=== PATIENT | female | born 1970 | race Caucasian/White ===

== ENCOUNTER → 2018-07-15 13:01 | Outpatient (CLI) | payer MEDICARE, MEDICAID, SELFPAY ==
--- NOTE | 2018-07-15 | DI.US.S_ITS ---
PROCEDURE: US ABDOMEN COMPLETE INDICATIONS: ELEVATED LYP TECHNIQUE: Real-time scanning was performed of the abdominal and retroperitoneal organs, with image documentation. COMPARISON: [facility], US, ABDOMEN COMPLETE, 12/03/2014, 14:17. [facility], CT, ABDOMEN/PELVIS WITH CONTRAST, 02/19/2007, 14:35. FINDINGS: Liver: The liver is normal in size and demonstrates extensive heterogeneous echogenicity which may be slightly increased when compared to the right kidney. No definite liver lesions are identified. Gallbladder: The gallbladder is normal in size. There is no gallbladder wall thickening, pericholecystic fluid, or cholelithiasis. Biliary ducts: Intrahepatic bile ducts are non-dilated. Extrahepatic bile duct caliber measures 6 mm. Normal is 6-7 mm or less in diameter, or 10 mm or less post-cholecystectomy. Pancreas: Visualized portions of the pancreas are sonographically normal. Spleen: Spleen is normal in size and homogeneous in echotexture. Kidneys: Kidneys are normal in size and echotexture. Right kidney measures 9.1 cm long; left kidney measures 10.1 cm long. No hydronephrosis or nephrolithiasis. No solid masses. Aorta: Visualized aorta is normal in caliber at less than 3 cm. Iliacs: Proximal common iliac arteries are normal in caliber at less than 2.5 cm. IVC: Intrahepatic inferior vena cava is patent. Miscellaneous: No free abdominal fluid. IMPRESSION: 1. No cholelithiasis or evidence of acute cholecystitis. 2. Nonspecific coarse echogenicity of the liver could potentially be within normal limits for this patient, but may be seen in the setting of hepatic steatosis or other chronic liver diseases. Please correlate clinically. Dictated by: Martin Hernández M.D. on 07/15/2018 at 13:56 Approved by: Martin Hernández M.D. on 07/15/2018 at 13:58
[2018-07-15 13:27] LABS: Add Manual Diff / Slide Review NO; Basophils Percent Auto 0.5 % (0-2); Eosinophils Percent Auto 0.7 % (2-4); Hematocrit 44.4 % (36-46); Hemoglobin 15.4 g/dL (12.0-16.0); Lymphocytes Percent Auto 30.5 % (25-40); Mean Corpuscular HGB Conc 34.8 % (30-36); Mean Corpuscular Hemoglobin 29.6 PG (26-34); Mean Corpuscular Volume 85.1 fL (80-100); Neutrophils Absolute Auto 4800 /uL (3000-5900); Neutrophils Percent Auto 62.3 % (50-75); Platelet Count 239 X10^3/uL (150-400); Red Blood Cell Count 5.22 X10^6/uL (4.0-5.2); Red Cell Distribution Width 13.7 % (11.6-14.8); White Blood Cell Count 7.7 X10^3/uL (4.5-11.0)
[2018-07-15 13:46] LABS: Amylase 127 U/L (30-110); Lipase 31 U/L (23-300)
== END ==
PROVIDERS: PCP Family Medicine; Visit Provider Family Medicine
DX: R10.9 Unspecified abdominal pain (principal); R74.8 Abnormal levels of other serum enzymes; R11.2 Nausea with vomiting, unspecified
CPT/HCPCS: 36415; 76700; 82150; 83690; 85025

== ENCOUNTER 2018-07-29 13:42 | Emergency (ER) | payer MEDICARE, MEDICAID, SELFPAY ==
[2018-07-29 13:48] VITALS: BP 127/87; PULSE 103; RESP 20; TEMP 36.9; O2SAT 96
--- NOTE | 2018-07-29 15:23 | ED.ABDPAIN ---
HPI - Abdominal Pain <Diandra Salcedo PA-C - Last Filed: 07/29/18 22:28> General Chief Complaint: Abdominal Pain Stated Complaint: Lower abdominal pain Time Seen by Provider: 07/29/18 15:23 Source: patient Mode of arrival: ambulatory Limitations: no limitations History of Present Illness HPI narrative: This 48-year-old female comes in due to persistent abdominal pain for more than a month. She states that about 6 weeks ago she was treated for UTI with multiple antibiotics and after that developed a ?blockage? where she has had persistent abdominal pain, nausea and vomiting. She states she was admitted to another local hospital for this about a month ago. She has had 2 CT scans done and apparently gallbladder evaluation, and states that there were no specific findings. She is awaiting a colonoscopy, apparently referral has been done by her PCP. She states that she was not able to tolerate anything solid when she left the hospital and still cannot. She even has difficulty with keeping down any liquids. She states that she feels like there is a firm prominence in her right lower abdomen. She states that she has intermittent sharp pain there without exacerbating or alleviating features aside from pain with pressure on the area. She states that she has no urinary symptoms currently. She denies blood in the stools or diarrhea. She states that she has sweats and chills at home with temperatures to 100. She has COPD, denies any new chest pain, dyspnea, increased cough or other new complaints aside from above. She has not noted any swollen glands. She is not acutely worse today but states her PCP advised coming in. I spoke with PCP Arthur who advised that patient has had persistent sx but initially was complaining of pain in the left lower quadrant, today on exam on the right side. She states that patient has normal CT scan 07/10 and also had a negative HIDA scan and lab work done today. She has also done testing for hepatitis. She has a colonoscopy appointment pending with Dr. rajan and has also been referred to GI. On review of previous hospital records she was admitted 07/10 to another local hospital due to abdominal pain, nausea, and vomiting and failing an oral challenge in the ED. HIDA scan and CT were normal. There were no acute findings on her lab work including amylase, lipase, LFTs, hep C serology. Related Data Home Medications Medication Instructions Recorded Confirmed albuterol sulfate [Ventolin HFA] 2 puff INH QID 07/29/18 07/29/18 beclomethasone dipropionate [Qvar 1 puff INHALATION BID 07/29/18 07/29/18 RediHaler] clonazepam 1 mg PO BID 07/29/18 07/29/18 coffee extract [Green Coffee Hagen] 1 cap PO DAILY 07/29/18 07/29/18 famotidine 20 mg PO DAILY 07/29/18 07/29/18 methocarbamol 1 tab PO TID PRN 07/29/18 07/29/18 nicotine 1 patch TOPICAL DAILY 07/29/18 07/29/18 polyethylene glycol 3350 1 dose PO PRN PRN 07/29/18 07/29/18 [LaxaClear] prochlorperazine maleate 5 mg PO Q6H 07/29/18 07/29/18 sennosides [senna] 1 tab PO PRN PRN 07/29/18 07/29/18 sumatriptan succinate 1 tab PO PRN PRN 07/29/18 07/29/18 Previous Rx's Medication Instructions Recorded quetiapine [Seroquel] 50 mg PO QHS #30 tab 04/06/17 meloxicam [Mobic] 7.5 mg PO BIDCC PRN #60 tab 07/20/17 hydrocodone-acetaminophen [Lillington] 1 tab PO Q6H PRN #7 tab 07/29/18 metoclopramide HCl [Reglan] 5 mg PO TID PRN #7 tab 07/29/18 Allergies Allergy/AdvReac Type Severity Reaction Status Date / Time fexofenadine [From NAVIN-D] Allergy Mild UNCONTROLLABLE Verified 07/29/18 16:19 BOWEL MOVEMENTS gabapentin [GABAPENTIN] Allergy Mild BODY SHAKES Verified 07/29/18 16:19 pregabalin [PREGABALIN] Allergy Mild TAKES Verified 07/29/18 16:19 MEMORY AWAY, ITCHING pseudoephedrine Allergy Mild UNCONTROLLABLE Verified 07/29/18 16:19 [From NAVIN-D] BOWEL MOVEMENTS lamotrigine Allergy Unknown Verified 07/29/18 16:19 prochlorperazine AdvReac Unknown Anxiety Verified 07/29/18 16:19 PEPPER,LOPEZ Allergy Unknown Uncoded 02/27/18 12:01 Review of Systems <Diandra Wesfader, PA-C - Last Filed: 07/29/18 22:28> Review of Systems All systems reviewed & are unremarkable except as noted in HPI and below PFSH <Diandra Salcedo PA-C - Last Filed: 07/29/18 22:28> Comment: Previous alcohol abuse, now abstinent. Denies other substance abuse or use Exam <Diandra Salcedo PA-C - Last Filed: 07/29/18 22:28> Narrative Exam Narrative: GENERAL APPEARANCE: Patient sitting comfortably, in no distress. HEENT: PERRL, EOMI, no scleral icterus NECK: Supple LUNGS: Generalized course BS with expiratory wheezes, no cough on exam HEART: Rate and rhythm regular, normal S1 and S2, no S3 or S4. ABDOMEN: Soft, nondistended, bowel sounds present x 4 quadrants, no masses palpable, no hepatosplenomegaly. Localized tenderness just medial to McBurney's point without guarding or rebound. No CVAT EXTREMITIES: No edema, no cyanosis DERMATOLOGIC: No jaundice or exanthem NEUROLOGIC: Alert and oriented with normal speech and coordination Initial Vital Signs Initial Vital Signs: Vital Signs Temperature 98.5 F 07/29/18 13:48 Pulse Rate 103 H 07/29/18 13:48 Respiratory Rate 20 07/29/18 13:48 Blood Pressure 127/87 07/29/18 13:48 Pulse Oximetry 96 07/29/18 13:48 <Tadeo Corley DO - Last Filed: 07/30/18 18:31> Initial Vital Signs Initial Vital Signs: Vital Signs Temperature 98.5 F 07/29/18 13:48 Pulse Rate 103 H 07/29/18 13:48 Respiratory Rate 20 07/29/18 13:48 Blood Pressure 127/87 07/29/18 13:48 Pulse Oximetry 96 07/29/18 13:48 Course <СВЕТЛАНА Still Last Filed: 07/29/18 22:28> Course Narrative: Patient tried to eat and drink and initially was unable to tolerate. We reviewed medications and she remembered Reglan specifically working for her previous the. She had also had a dose or 2 of Lillington at some point which was effective. After 1 Lillington and a dose of Reglan, she was feeling much better and was able to tolerate water and apple sauce with improvement in pain and no vomiting. She states that she has been able to take her oral medications. She was given a prescription for Reglan and also a few Lillington until she can get back to her PCP to determine regimen for pain control and nausea until her colonoscopy and GI appointments. I did advise her to talk with [facility] tomorrow regarding her appointment. She did not wish or appear to need hospital admission tonight as there were no acute findings on her lab work or CT and she was ultimately able to tolerate p.o. fluids and food Orders Ordered: Discontinued Medications Hydrocodone Bitart/Acetaminophen ([place] 5/325) 1 tab PO NOW ONE Stop: 07/29/18 18:51 Last Admin: 07/29/18 19:01 Dose: 1 tab Diphenhydramine HCl (Benadryl) 50 mg IV NOW ONE Stop: 07/29/18 17:23 Last Admin: 07/29/18 17:45 Dose: 50 mg Sodium Chloride (Normal Saline 0.9%) 1,000 mls @ 1,000 mls/hr IV BOLUS ONE Stop: 07/29/18 16:41 Last Infusion: 07/29/18 17:57 Dose: 0 mls/hr Admin: 07/29/18 16:18 Dose: 1,000 mls/hr Ketorolac Tromethamine (Toradol) 30 mg IV NOW ONE Stop: 07/29/18 18:20 Last Admin: 07/29/18 18:26 Dose: 30 mg Metoclopramide HCl (Reglan) 10 mg IV NOW ONE Stop: 07/29/18 18:51 Last Admin: 07/29/18 19:01 Dose: 10 mg Ondansetron HCl (Zofran) 4 mg IV NOW ONE Stop: 07/29/18 15:43 Last Admin: 07/29/18 16:18 Dose: 4 mg Vital Signs - 8 hr 07/29/18 18:41 07/29/18 19:58 Pulse Rate 72 61 Respiratory Rate 15 12 Blood Pressure 106/69 Blood Pressure [Left Arm] 110/89 Pulse Oximetry 99 99 <Tadeo Corley, DO - Last Filed: 07/30/18 18:31> Orders Ordered: Discontinued Medications Hydrocodone Bitart/Acetaminophen ([place]illing[place] 5/325) 1 tab PO NOW ONE Stop: 07/29/18 18:51 Last Admin: 07/29/18 19:01 Dose: 1 tab Diphenhydramine HCl (Benadryl) 50 mg IV NOW ONE Stop: 07/29/18 17:23 Last Admin: 07/29/18 17:45 Dose: 50 mg Sodium Chloride (Normal Saline 0.9%) 1,000 mls @ 1,000 mls/hr IV BOLUS ONE Stop: 07/29/18 16:41 Last Infusion: 07/29/18 17:57 Dose: 0 mls/hr Admin: 07/29/18 16:18 Dose: 1,000 mls/hr Ketorolac Tromethamine (Toradol) 30 mg IV NOW ONE Stop: 07/29/18 18:20 Last Admin: 07/29/18 18:26 Dose: 30 mg Metoclopramide HCl (Reglan) 10 mg IV NOW ONE Stop: 07/29/18 18:51 Last Admin: 07/29/18 19:01 Dose: 10 mg Ondansetron HCl (Zofran) 4 mg IV NOW ONE Stop: 07/29/18 15:43 Last Admin: 07/29/18 16:18 Dose: 4 mg Vital Signs - 8 hr 07/29/18 18:41 07/29/18 19:58 Pulse Rate 72 61 Respiratory Rate 15 12 Blood Pressure 106/69 Blood Pressure [Left Arm] 110/89 Pulse Oximetry 99 99 MDM - Abdominal Pain <Diandra Salcedo PA-C - Last Filed: 07/29/18 22:28> Medical Records Attestation: I reviewed the patient's medical records. Lab Data Attestation: I reviewed the patient's lab results. Result diagrams: 07/29/18 10:15 07/29/18 10:15 Lab Results 07/29/18 07/29/18 07/29/18 Range/Units 10:15 10:15 16:30 WBC 7.5 (4.5-11.0) X10^3/uL RBC 5.14 (4.0-5.2) X10^6/uL Hgb 15.2 (12.0-16.0) g/dL Hct 43.7 (36-46) % MCV 84.9 (80-100) fL MCH 29.5 (26-34) PG MCHC 34.7 (30-36) % RDW 13.7 (11.6-14.8) % Plt Count 183 (150-400) X10^3/uL Neut % (Auto) 52.8 (50-75) % Lymph % (Auto) 39.4 (25-40) % Adams % (Auto) 5.7 (3-14) % Eos % (Auto) 0.8 L (2-4) % Baso % (Auto) 1.3 (0-2) % Neut # (Auto) 4000 (2825-4344) /uL Sodium 145 (137-145) mmol/L Potassium 4.7 (3.4-5.1) mmol/L Chloride 105 (98-107) mmol/L Carbon Dioxide 30 (22-32) mmol/L BUN 11 (7-17) mg/dL Creatinine 0.80 (0.52-1.04) mg/dL Estimated GFR > 60.0 (>60) mL/min BUN/Creatinine Ratio 13.8 (6-22) Glucose 93 (70-100) mg/dL Calcium 9.9 (8.4-10.2) mg/dL Total Bilirubin 0.8 (0.2-1.3) mg/dL AST 36 (14-36) IU/L ALT 36 (9-52) IU/L Alkaline Phosphatase 88 (38-126) U/L Total Protein 7.7 (6.3-8.2) g/dL Albumin 4.7 (3.5-5.0) g/dL Globulin 3.0 (1.7-4.1) g/dL Albumin/Globulin Ratio 1.6 (1.0-2.8) Lipase 30 (23-300) U/L Urine RBC 1-5/hpf (0-5/HPF) Urine WBC 0-1/hpf (0-5/HPF) Ur Squamous Epith Cells 1-5 /hpf Urine Bacteria Few (2-10) H (None) Ur Culture Indicated? Cult not indicated Micro UA Comment Not Reportable Point of care testing: Urine Dip Bedside Urine Glucose Negative Bedside Urine Bilirubin - Negative Bedside Urine Ketone - Negative Urine Specific [place] 1.015 Bedside Urine Occult Blood +/- Bedside Urine pH 6.0 Bedside Urine Protein - Negative Bedside Urine Urobilinogen - Negative Bedside Urine Nitrite - Negative Bedside Urine Leukocytes - Negative Esterase Imaging Data CT scan - abdomen: Radiologist's impression: Abdomen/Pelvis CT (Signed) Toby Armenta - 07/29/18 Abdomen Ultrasound (Signed) Martin Hernández - 07/15/18 View Report History Print [address] [address] [place] Scan Report Signed Patient: Kiki Priest MR#: [id number] : 1970 Acct:[id number] Age/Sex: 48 / F Date of Service: 07/29/18 Loc: ED Accession Number: [id number] Procedure: CT abdomen pelvis w con Ordering Provider: Diandra Salcedo P.A-C PROCEDURE: CT ABDOMEN PELVIS W CON INDICATIONS: worsening abdominal pain mid lower to Right, chronic nausea/vomiting TECHNIQUE: After the administration of intravenous contrast, 5 mm thick sections acquired from the diaphragm to the symphysis. 5 mm coronal and sagittal reformats were acquired. For radiation dose reduction, the following was used: automated exposure control, adjustment of mA and/or kV according to patient size. COMPARISON: [facility], CT, ABDOMEN/PELVIS WITH CONTRAST, 02/19/2007, 14:35. FINDINGS: Image quality: Excellent. ABDOMEN: Lung bases: Lung bases are clear. Heart size is normal. Solid organs: Liver is normal in size and enhancement. Gallbladder is within normal limits. Biliary system is non dilated. Pancreas enhances normally. Spleen is normal in size and enhancement. No adrenal nodules. Kidneys demonstrate normal size and enhancement, without hydronephrosis. Peritoneum and bowel: Bowel loops demonstrate normal wall thickness and caliber. No free fluid or air. There is a small hiatal hernia. Appendix is not definitively identified. No secondary signs of acute appendicitis is seen in right lower quadrant abdomen Nodes and vessels: No retroperitoneal or mesenteric adenopathy by size criteria. Aorta and inferior vena cava are normal in size. Miscellaneous: No ventral hernias. PELVIS: Genitourinary: Bladder wall thickness is normal. Miscellaneous: No inguinal hernias or adenopathy. Bones: No suspicious bony lesions. No vertebral body compression fractures. IMPRESSION: 1. No acute inflammatory process within the abdomen or pelvis. No findings to explain patient's clinical symptoms. Dictated by: Toby Armenta M.D. on 07/29/2018 at 18:22 Approved by: Toby Armenta M.D. on 07/29/2018 at 18:27 <Tadeo Corley, DO - Last Filed: 07/30/18 18:31> Lab Data Lab Results 07/29/18 07/29/18 07/29/18 Range/Units 10:15 10:15 16:30 WBC 7.5 (4.5-11.0) X10^3/uL RBC 5.14 (4.0-5.2) X10^6/uL Hgb 15.2 (12.0-16.0) g/dL Hct 43.7 (36-46) % MCV 84.9 (80-100) fL MCH 29.5 (26-34) PG MCHC 34.7 (30-36) % RDW 13.7 (11.6-14.8) % Plt Count 183 (150-400) X10^3/uL Neut % (Auto) 52.8 (50-75) % Lymph % (Auto) 39.4 (25-40) % Adams % (Auto) 5.7 (3-14) % Eos % (Auto) 0.8 L (2-4) % Baso % (Auto) 1.3 (0-2) % Neut # (Auto) 4000 (7635-0934) /uL Sodium 145 (137-145) mmol/L Potassium 4.7 (3.4-5.1) mmol/L Chloride 105 (98-107) mmol/L Carbon Dioxide 30 (22-32) mmol/L BUN 11 (7-17) mg/dL Creatinine 0.80 (0.52-1.04) mg/dL Estimated GFR > 60.0 (>60) mL/min BUN/Creatinine Ratio 13.8 (6-22) Glucose 93 (70-100) mg/dL Calcium 9.9 (8.4-10.2) mg/dL Total Bilirubin 0.8 (0.2-1.3) mg/dL AST 36 (14-36) IU/L ALT 36 (9-52) IU/L Alkaline Phosphatase 88 (38-126) U/L Total Protein 7.7 (6.3-8.2) g/dL Albumin 4.7 (3.5-5.0) g/dL Globulin 3.0 (1.7-4.1) g/dL Albumin/Globulin Ratio 1.6 (1.0-2.8) Lipase 30 (23-300) U/L Urine RBC 1-5/hpf (0-5/HPF) Urine WBC 0-1/hpf (0-5/HPF) Ur Squamous Epith Cells 1-5 /hpf Urine Bacteria Few (2-10) H (None) Ur Culture Indicated? Cult not indicated Micro UA Comment Not Reportable Point of care testing: Urine Dip Bedside Urine Glucose Negative Bedside Urine Bilirubin - Negative Bedside Urine Ketone - Negative Urine Specific [place] 1.015 Bedside Urine Occult Blood +/- Bedside Urine pH 6.0 Bedside Urine Protein - Negative Bedside Urine Urobilinogen - Negative Bedside Urine Nitrite - Negative Bedside Urine Leukocytes - Negative Esterase Discharge Plan Departure Patient Disposition: Home Clinical Impression: Abdominal pain, Nausea & vomiting Discharge Date/Time: 07/29/18 19:59 Interventions: ED Discharge Assessment Last Done: 07/29/18 19:58 Instructions: DI for Abdominal Pain-Adult, DI for Vomiting -- Adult Activity Restrictions/Additional Instructions: Please try small amounts of bland food every couple of hours to help with your nausea. Eats things such as no sugar apple sauce, bananas, white rice or bread, tea, broth and clear fluids. I have also given you a prescription for Reglan (metoclopramide), and a few pain pills (Lillington) since they both seem to help the pain and vomiting questions tonight. Please stop your other nausea medicines since there are potential interactions and they have not been effective for you. Do not take the pain pills and drive as they may make you sleepy. Please call your PCP tomorrow and let her know that we tried several medications and at least found something effective enough so you could eat while you are waiting for your colonoscopy. Set up a follow-up plan with her to talk about medications while your appointment is pending. Please call [facility] (she has referred you to Dr. Robison there) and let them know you have been referred and were seen at the emergency room last night so that you can find out where you are as far as getting an appointment and see if they can see you sooner. Return to the ED as we talked about if any acutely worsening symptoms Prescriptions: New hydrocodone-acetaminophen [Lilling[place]] 5-325 mg tablet 1 tab PO Q6H PRN (Reason: abdominal pain) Qty: 7 RF: 0 metoclopramide HCl [Reglan] 5 mg tablet 5 mg PO TID PRN (Reason: nausea and vomiting) Qty: 7 RF: 0 No Action quetiapine [Seroquel] 50 MG tablet 50 mg PO QHS Qty: 30 RF: 0 meloxicam [Mobic] 7.5 MG tablet 7.5 mg PO BIDCC PRNQty: 60 RF: 0 methocarbamol 500 mg tablet 1 tab PO TID PRN (Reason: muscle spasm) RF: 0 nicotine 14 mg/24 hr patch 24 hour 1 patch Topical DAILY RF: 0 sumatriptan succinate 100 mg tablet 1 tab PO PRN PRN (Reason: Migraine Headache) RF: 0 clonazepam 1 mg tablet 1 mg PO BID RF: 0 sennosides [senna] 8.6 mg Tablet 1 tab PO PRN PRN (Reason: Constipation) RF: 0 prochlorperazine maleate 10 mg Tablet 5 mg PO Q6H RF: 0 famotidine 20 mg Tablet 20 mg PO DAILY RF: 0 polyethylene glycol 3350 [LaxaClear] 17 gram/dose Powder 1 dose PO PRN PRN (Reason: Constipation) RF: 0 coffee extract [Green Coffee Hagen] 400 mg Capsule 1 cap PO DAILY RF: 0 beclomethasone dipropionate [Qvar RediHaler] 80 mcg/actuation Hfa Aerosol Breath Activated 1 puff Inhalation BID RF: 0 albuterol sulfate [Ventolin HFA] 90 MCG/PUFF HFA aerosol inhaler 2 puff INH QID RF: 0 Referrals: Madelyn Gibson MD [Primary Care Provider] - Sugey Robison MD [Physician] - <Tadeo Corley DO - Last Filed: 07/30/18 18:31> Cosign ED Attending [place] Attestation: I was available for consultation during this patient's emergency department encounter
--- NOTE | 2018-07-29 15:27 | ED_ITS ---
HPI - Abdominal Pain <Diandra Salcedo PA-C - Last Filed: 07/29/18 22:28> General Chief Complaint: Abdominal Pain Stated Complaint: Lower abdominal pain Time Seen by Provider: 07/29/18 15:23 Source: patient Mode of arrival: ambulatory Limitations: no limitations History of Present Illness HPI narrative: This 48-year-old female comes in due to persistent abdominal pain for more than a month. She states that about 6 weeks ago she was treated for UTI with multiple antibiotics and after that developed a ?blockage? where she has had persistent abdominal pain, nausea and vomiting. She states she was admitted to another local hospital for this about a month ago. She has had 2 CT scans done and apparently gallbladder evaluation, and states that there were no specific findings. She is awaiting a colonoscopy, apparently referral has been done by her PCP. She states that she was not able to tolerate anything solid when she left the hospital and still cannot. She even has difficulty with keeping down any liquids. She states that she feels like there is a firm prominence in her right lower abdomen. She states that she has intermittent sharp pain there without exacerbating or alleviating features aside from pain with pressure on the area. She states that she has no urinary symptoms currently. She denies blood in the stools or diarrhea. She states that she has sweats and chills at home with temperatures to 100. She has COPD, denies any new chest pain, dyspnea, increased cough or other new complaints aside from above. She has not noted any swollen glands. She is not acutely worse today but states her PCP advised coming in. I spoke with PCP Arthur who advised that patient has had persistent sx but initially was complaining of pain in the left lower quadrant, today on exam on the right side. She states that patient has normal CT scan 07/10 and also had a negative HIDA scan and lab work done today. She has also done testing for hepatitis. She has a colonoscopy appointment pending with Dr. rajan and has also been referred to GI. On review of previous hospital records she was admitted 07/10 to another local hospital due to abdominal pain, nausea, and vomiting and failing an oral challenge in the ED. HIDA scan and CT were normal. There were no acute findings on her lab work including amylase, lipase, LFTs, hep C serology. Related Data Home Medications Medication Instructions Recorded Confirmed albuterol sulfate [Ventolin HFA] 2 puff INH QID 07/29/18 07/29/18 beclomethasone dipropionate [Qvar 1 puff INHALATION BID 07/29/18 07/29/18 RediHaler] clonazepam 1 mg PO BID 07/29/18 07/29/18 coffee extract [Green Coffee Hagen] 1 cap PO DAILY 07/29/18 07/29/18 famotidine 20 mg PO DAILY 07/29/18 07/29/18 methocarbamol 1 tab PO TID PRN 07/29/18 07/29/18 nicotine 1 patch TOPICAL DAILY 07/29/18 07/29/18 polyethylene glycol 3350 1 dose PO PRN PRN 07/29/18 07/29/18 [LaxaClear] prochlorperazine maleate 5 mg PO Q6H 07/29/18 07/29/18 sennosides [senna] 1 tab PO PRN PRN 07/29/18 07/29/18 sumatriptan succinate 1 tab PO PRN PRN 07/29/18 07/29/18 Previous Rx's Medication Instructions Recorded quetiapine [Seroquel] 50 mg PO QHS #30 tab 04/06/17 meloxicam [Mobic] 7.5 mg PO BIDCC PRN #60 tab 07/20/17 hydrocodone-acetaminophen [[place]] 1 tab PO Q6H PRN #7 tab 07/29/18 metoclopramide HCl [Reglan] 5 mg PO TID PRN #7 tab 07/29/18 Allergies Allergy/AdvReac Type Severity Reaction Status Date / Time fexofenadine [From NAVIN-D] Allergy Mild UNCONTROLLABLE Verified 07/29/18 16: 19 BOWEL MOVEMENTS gabapentin [GABAPENTIN] Allergy Mild BODY SHAKES Verified 07/29/18 16:19 pregabalin [PREGABALIN] Allergy Mild TAKES Verified 07/29/18 16:19 MEMORY AWAY, ITCHING pseudoephedrine Allergy Mild UNCONTROLLABLE Verified 07/29/18 16:19 [From NAVIN-D] BOWEL MOVEMENTS lamotrigine Allergy Unknown Verified 07/29/18 16:19 prochlorperazine AdvReac Unknown Anxiety Verified 07/29/18 16:19 PEPPER,LOPEZ Allergy Unknown Uncoded 02/27/18 12:01 Review of Systems <Diandra Wesfader, PA-C - Last Filed: 07/29/18 22:28> Review of Systems All systems reviewed & are unremarkable except as noted in HPI and below PFSH <Diandra Salcedo PA-C - Last Filed: 07/29/18 22:28> Comment: Previous alcohol abuse, now abstinent. Denies other substance abuse or use Exam <Diandra Salcedo PA-C - Last Filed: 07/29/18 22:28> Narrative Exam Narrative: GENERAL APPEARANCE: Patient sitting comfortably, in no distress. HEENT: PERRL, EOMI, no scleral icterus NECK: Supple LUNGS: Generalized course BS with expiratory wheezes, no cough on exam HEART: Rate and rhythm regular, normal S1 and S2, no S3 or S4. ABDOMEN: Soft, nondistended, bowel sounds present x 4 quadrants, no masses palpable, no hepatosplenomegaly. Localized tenderness just medial to McBurney's point without guarding or rebound. No CVAT EXTREMITIES: No edema, no cyanosis DERMATOLOGIC: No jaundice or exanthem NEUROLOGIC: Alert and oriented with normal speech and coordination Initial Vital Signs Initial Vital Signs: Vital Signs Temperature 98.5 F 07/29/18 13:48 Pulse Rate 103 H 07/29/18 13:48 Respiratory Rate 20 07/29/18 13:48 Blood Pressure 127/87 07/29/18 13:48 Pulse Oximetry 96 07/29/18 13:48 <Tadeo Corley DO - Last Filed: 07/30/18 18:31> Initial Vital Signs Initial Vital Signs: Vital Signs Temperature 98.5 F 07/29/18 13:48 Pulse Rate 103 H 07/29/18 13:48 Respiratory Rate 20 07/29/18 13:48 Blood Pressure 127/87 07/29/18 13:48 Pulse Oximetry 96 07/29/18 13:48 Course <СВЕТЛАНА Still Last Filed: 07/29/18 22:28> Course Narrative: Patient tried to eat and drink and initially was unable to tolerate. We reviewed medications and she remembered Reglan specifically working for her previous the. She had also had a dose or 2 of Washington at some point which was effective. After 1 Washington and a dose of Reglan, she was feeling much better and was able to tolerate water and apple sauce with improvement in pain and no vomiting. She states that she has been able to take her oral medications. She was given a prescription for Reglan and also a few Washington until she can get back to her PCP to determine regimen for pain control and nausea until her colonoscopy and GI appointments. I did advise her to talk with [facility] tomorrow regarding her appointment. She did not wish or appear to need hospital admission tonight as there were no acute findings on her lab work or CT and she was ultimately able to tolerate p.o. fluids and food Orders Ordered: Discontinued Medications Hydrocodone Bitart/Acetaminophen ([place] 5/325) 1 tab PO NOW ONE Stop: 07/29/18 18:51 Last Admin: 07/29/18 19:01 Dose: 1 tab Diphenhydramine HCl (Benadryl) 50 mg IV NOW ONE Stop: 07/29/18 17:23 Last Admin: 07/29/18 17:45 Dose: 50 mg Sodium Chloride (Normal Saline 0.9%) 1,000 mls @ 1,000 mls/hr IV BOLUS ONE Stop: 07/29/18 16:41 Last Infusion: 07/29/18 17:57 Dose: 0 mls/hr Admin: 07/29/18 16:18 Dose: 1,000 mls/hr Ketorolac Tromethamine (Toradol) 30 mg IV NOW ONE Stop: 07/29/18 18:20 Last Admin: 07/29/18 18:26 Dose: 30 mg Metoclopramide HCl (Reglan) 10 mg IV NOW ONE Stop: 07/29/18 18:51 Last Admin: 07/29/18 19:01 Dose: 10 mg Ondansetron HCl (Zofran) 4 mg IV NOW ONE Stop: 07/29/18 15:43 Last Admin: 07/29/18 16:18 Dose: 4 mg Vital Signs - 8 hr 07/29/18 18:41 07/29/18 19:58 Pulse Rate 72 61 Respiratory Rate 15 12 Blood Pressure 106/69 Blood Pressure [Left Arm] 110/89 Pulse Oximetry 99 99 <Tadeo Corley, DO - Last Filed: 07/30/18 18:31> Orders Ordered: Discontinued Medications Hydrocodone Bitart/Acetaminophen ([place] 5/325) 1 tab PO NOW ONE Stop: 07/29/18 18:51 Last Admin: 07/29/18 19:01 Dose: 1 tab Diphenhydramine HCl (Benadryl) 50 mg IV NOW ONE Stop: 07/29/18 17:23 Last Admin: 07/29/18 17:45 Dose: 50 mg Sodium Chloride (Normal Saline 0.9%) 1,000 mls @ 1,000 mls/hr IV BOLUS ONE Stop: 07/29/18 16:41 Last Infusion: 07/29/18 17:57 Dose: 0 mls/hr Admin: 07/29/18 16:18 Dose: 1,000 mls/hr Ketorolac Tromethamine (Toradol) 30 mg IV NOW ONE Stop: 07/29/18 18:20 Last Admin: 07/29/18 18:26 Dose: 30 mg Metoclopramide HCl (Reglan) 10 mg IV NOW ONE Stop: 07/29/18 18:51 Last Admin: 07/29/18 19:01 Dose: 10 mg Ondansetron HCl (Zofran) 4 mg IV NOW ONE Stop: 07/29/18 15:43 Last Admin: 07/29/18 16:18 Dose: 4 mg Vital Signs - 8 hr 07/29/18 18:41 07/29/18 19:58 Pulse Rate 72 61 Respiratory Rate 15 12 Blood Pressure 106/69 Blood Pressure [Left Arm] 110/89 Pulse Oximetry 99 99 MDM - Abdominal Pain <Diandra Salcedo PA-C - Last Filed: 07/29/18 22:28> Medical Records Attestation: I reviewed the patient's medical records. Lab Data Attestation: I reviewed the patient's lab results. Result diagrams: 07/29/18 10:15 07/29/18 10:15 Lab Results 07/29/18 07/29/18 07/29/18 Range/Units 10:15 10:15 16:30 WBC 7.5 (4.5-11.0) X10^3/uL RBC 5.14 (4.0-5.2) X10^6/uL Hgb 15.2 (12.0-16.0) g/dL Hct 43.7 (36-46) % MCV 84.9 (80-100) fL MCH 29.5 (26-34) PG MCHC 34.7 (30-36) % RDW 13.7 (11.6-14.8) % Plt Count 183 (150-400) X10^3/uL Neut % (Auto) 52.8 (50-75) % Lymph % (Auto) 39.4 (25-40) % Roosevelt % (Auto) 5.7 (3-14) % Eos % (Auto) 0.8 L (2-4) % Baso % (Auto) 1.3 (0-2) % Neut # (Auto) 4000 (7087-5783) /uL Sodium 145 (137-145) mmol/L Potassium 4.7 (3.4-5.1) mmol/L Chloride 105 (98-107) mmol/L Carbon Dioxide 30 (22-32) mmol/L BUN 11 (7-17) mg/dL Creatinine 0.80 (0.52-1.04) mg/dL Estimated GFR > 60.0 (>60) mL/min BUN/Creatinine Ratio 13.8 (6-22) Glucose 93 (70-100) mg/dL Calcium 9.9 (8.4-10.2) mg/dL Total Bilirubin 0.8 (0.2-1.3) mg/dL AST 36 (14-36) IU/L ALT 36 (9-52) IU/L Alkaline Phosphatase 88 (38-126) U/L Total Protein 7.7 (6.3-8.2) g/dL Albumin 4.7 (3.5-5.0) g/dL Globulin 3.0 (1.7-4.1) g/dL Albumin/Globulin Ratio 1.6 (1.0-2.8) Lipase 30 (23-300) U/L Urine RBC 1-5/hpf (0-5/HPF) Urine WBC 0-1/hpf (0-5/HPF) Ur Squamous Epith Cells 1-5 /hpf Urine Bacteria Few (2-10) H (None) Ur Culture Indicated? Cult not indicated Micro UA Comment Not Reportable Point of care testing: Urine Dip Bedside Urine Glucose Negative Bedside Urine Bilirubin - Negative Bedside Urine Ketone - Negative Urine Specific Secretary 1.015 Bedside Urine Occult Blood +/- Bedside Urine pH 6.0 Bedside Urine Protein - Negative Bedside Urine Urobilinogen - Negative Bedside Urine Nitrite - Negative Bedside Urine Leukocytes - Negative Esterase Imaging Data CT scan - abdomen: Radiologist's impression: Abdomen/Pelvis CT (Signed) Toby Armenta - 07/29/18 Abdomen Ultrasound (Signed) Martin Hernández - 07/15/18 View Report History Print [address] [address] [place] Scan Report Signed Patient: Kiki Priest MR#: [id number] : 1970 Acct:[id number] Age/Sex: 48 / F Date of Service: 07/29/18 Loc: ED Accession Number: [id number] Procedure: CT abdomen pelvis w con Ordering Provider: Diandra Salcedo P.A-C PROCEDURE: CT ABDOMEN PELVIS W CON INDICATIONS: worsening abdominal pain mid lower to Right, chronic nausea/ vomiting TECHNIQUE: After the administration of intravenous contrast, 5 mm thick sections acquired from the diaphragm to the symphysis. 5 mm coronal and sagittal reformats were acquired. For radiation dose reduction, the following was used: automated exposure control, adjustment of mA and/or kV according to patient size. COMPARISON: [facility], CT, ABDOMEN/PELVIS WITH CONTRAST, 02/19/2007, 14: 35. FINDINGS: Image quality: Excellent. ABDOMEN: Lung bases: Lung bases are clear. Heart size is normal. Solid organs: Liver is normal in size and enhancement. Gallbladder is within normal limits. Biliary system is non dilated. Pancreas enhances normally. Spleen is normal in size and enhancement. No adrenal nodules. Kidneys demonstrate normal size and enhancement, without hydronephrosis. Peritoneum and bowel: Bowel loops demonstrate normal wall thickness and caliber. No free fluid or air. There is a small hiatal hernia. Appendix is not definitively identified. No secondary signs of acute appendicitis is seen in right lower quadrant abdomen Nodes and vessels: No retroperitoneal or mesenteric adenopathy by size criteria. Aorta and inferior vena cava are normal in size. Miscellaneous: No ventral hernias. PELVIS: Genitourinary: Bladder wall thickness is normal. Miscellaneous: No inguinal hernias or adenopathy. Bones: No suspicious bony lesions. No vertebral body compression fractures. IMPRESSION: 1. No acute inflammatory process within the abdomen or pelvis. No findings to explain patient's clinical symptoms. Dictated by: Toby Armenta M.D. on 07/29/2018 at 18:22 Approved by: Toby Armenta M.D. on 07/29/2018 at 18:27 <Tadeo Corley, DO - Last Filed: 07/30/18 18:31> Lab Data Lab Results 07/29/18 07/29/18 07/29/18 Range/Units 10:15 10:15 16:30 WBC 7.5 (4.5-11.0) X10^3/uL RBC 5.14 (4.0-5.2) X10^6/uL Hgb 15.2 (12.0-16.0) g/dL Hct 43.7 (36-46) % MCV 84.9 (80-100) fL MCH 29.5 (26-34) PG MCHC 34.7 (30-36) % RDW 13.7 (11.6-14.8) % Plt Count 183 (150-400) X10^3/uL Neut % (Auto) 52.8 (50-75) % Lymph % (Auto) 39.4 (25-40) % Roosevelt % (Auto) 5.7 (3-14) % Eos % (Auto) 0.8 L (2-4) % Baso % (Auto) 1.3 (0-2) % Neut # (Auto) 4000 (2407-6559) /uL Sodium 145 (137-145) mmol/L Potassium 4.7 (3.4-5.1) mmol/L Chloride 105 (98-107) mmol/L Carbon Dioxide 30 (22-32) mmol/L BUN 11 (7-17) mg/dL Creatinine 0.80 (0.52-1.04) mg/dL Estimated GFR > 60.0 (>60) mL/min BUN/Creatinine Ratio 13.8 (6-22) Glucose 93 (70-100) mg/dL Calcium 9.9 (8.4-10.2) mg/dL Total Bilirubin 0.8 (0.2-1.3) mg/dL AST 36 (14-36) IU/L ALT 36 (9-52) IU/L Alkaline Phosphatase 88 (38-126) U/L Total Protein 7.7 (6.3-8.2) g/dL Albumin 4.7 (3.5-5.0) g/dL Globulin 3.0 (1.7-4.1) g/dL Albumin/Globulin Ratio 1.6 (1.0-2.8) Lipase 30 (23-300) U/L Urine RBC 1-5/hpf (0-5/HPF) Urine WBC 0-1/hpf (0-5/HPF) Ur Squamous Epith Cells 1-5 /hpf Urine Bacteria Few (2-10) H (None) Ur Culture Indicated? Cult not indicated Micro UA Comment Not Reportable Point of care testing: Urine Dip Bedside Urine Glucose Negative Bedside Urine Bilirubin - Negative Bedside Urine Ketone - Negative Urine Specific Secretary 1.015 Bedside Urine Occult Blood +/- Bedside Urine pH 6.0 Bedside Urine Protein - Negative Bedside Urine Urobilinogen - Negative Bedside Urine Nitrite - Negative Bedside Urine Leukocytes - Negative Esterase Discharge Plan Departure Patient Disposition: Home Clinical Impression: Abdominal pain, Nausea & vomiting Discharge Date/Time: 07/29/18 19:59 Interventions: ED Discharge Assessment Last Done: 07/29/18 19:58 Instructions: DI for Abdominal Pain-Adult, DI for Vomiting -- Adult Activity Restrictions/Additional Instructions: Please try small amounts of bland food every couple of hours to help with your nausea. Eats things such as no sugar apple sauce, bananas, white rice or bread , tea, broth and clear fluids. I have also given you a prescription for Reglan (metoclopramide), and a few pain pills (Washington) since they both seem to help the pain and vomiting questions tonight. Please stop your other nausea medicines since there are potential interactions and they have not been effective for you. Do not take the pain pills and drive as they may make you sleepy. Please call your PCP tomorrow and let her know that we tried several medications and at least found something effective enough so you could eat while you are waiting for your colonoscopy. Set up a follow-up plan with her to talk about medications while your appointment is pending. Please call [facility] ( she has referred you to Dr. Robison there) and let them know you have been referred and were seen at the emergency room last night so that you can find out where you are as far as getting an appointment and see if they can see you sooner. Return to the ED as we talked about if any acutely worsening symptoms Prescriptions: New hydrocodone-acetaminophen [[place]] 5-325 mg tablet 1 tab PO Q6H PRN (Reason: abdominal pain) Qty: 7 RF: 0 metoclopramide HCl [Reglan] 5 mg tablet 5 mg PO TID PRN (Reason: nausea and vomiting) Qty: 7 RF: 0 No Action quetiapine [Seroquel] 50 MG tablet 50 mg PO QHS Qty: 30 RF: 0 meloxicam [Mobic] 7.5 MG tablet 7.5 mg PO BIDCC PRNQty: 60 RF: 0 methocarbamol 500 mg tablet 1 tab PO TID PRN (Reason: muscle spasm) RF: 0 nicotine 14 mg/24 hr patch 24 hour 1 patch Topical DAILY RF: 0 sumatriptan succinate 100 mg tablet 1 tab PO PRN PRN (Reason: Migraine Headache) RF: 0 clonazepam 1 mg tablet 1 mg PO BID RF: 0 sennosides [senna] 8.6 mg Tablet 1 tab PO PRN PRN (Reason: Constipation) RF: 0 prochlorperazine maleate 10 mg Tablet 5 mg PO Q6H RF: 0 famotidine 20 mg Tablet 20 mg PO DAILY RF: 0 polyethylene glycol 3350 [LaxaClear] 17 gram/dose Powder 1 dose PO PRN PRN (Reason: Constipation) RF: 0 coffee extract [Green Coffee Hagen] 400 mg Capsule 1 cap PO DAILY RF: 0 beclomethasone dipropionate [Qvar RediHaler] 80 mcg/actuation Hfa Aerosol Breath Activated 1 puff Inhalation BID RF: 0 albuterol sulfate [Ventolin HFA] 90 MCG/PUFF HFA aerosol inhaler 2 puff INH QID RF: 0 Referrals: Madelyn Gibson MD [Primary Care Provider] - Sugey Robison MD [Physician] - <Tadeo Corley DO - Last Filed: 07/30/18 18:31> Cosign ED Attending Kota Attestation: I was available for consultation during this patient's emergency department encounter
[2018-07-29] MEDS: ONDANSETRON 4 MG/2 ML INJ IV (16:18)
[2018-07-29] MEDS: SODIUM CHLORIDE 0.9% 1,000 ML 1000 ML IV (16:18)
[2018-07-29 16:23] LABS: Add Manual Diff / Slide Review NO; Basophils Percent Auto 1.3 % (0-2); Eosinophils Percent Auto 0.8 % (2-4); Hematocrit 43.7 % (36-46); Hemoglobin 15.2 g/dL (12.0-16.0); Lymphocytes Percent Auto 39.4 % (25-40); Mean Corpuscular HGB Conc 34.7 % (30-36); Mean Corpuscular Hemoglobin 29.5 PG (26-34); Mean Corpuscular Volume 84.9 fL (80-100); Monocytes Percent Auto 5.7 % (3-14); Neutrophils Absolute Auto 4000 /uL (3000-5900); Neutrophils Percent Auto 52.8 % (50-75); Platelet Count 183 X10^3/uL (150-400); Red Blood Cell Count 5.14 X10^6/uL (4.0-5.2); Red Cell Distribution Width 13.7 % (11.6-14.8); White Blood Cell Count 7.5 X10^3/uL (4.5-11.0)
[2018-07-29 16:34] LABS: Alanine Aminotransferase 36 IU/L (9-52); Albumin 4.7 g/dL (3.5-5.0); Albumin Globulin Ratio 1.6 (1.0-2.8); Alkaline Phosphatase 88 U/L (38-126); Aspartate Aminotransferase 36 IU/L (14-36); BUN Creatinine Ratio 13.8 (6-22); Bilirubin Total 0.8 mg/dL (0.2-1.3); Blood Urea Nitrogen 11 mg/dL (7-17); Calcium 9.9 mg/dL (8.4-10.2); Carbon Dioxide 30 mmol/L (22-32); Chloride 105 mmol/L (98-107); Estimated Glomerular Filt Rate > 60.0 mL/min (>60); Glucose 93 mg/dL (70-100); Lipase 30 U/L (23-300); Sodium 145 mmol/L (137-145); Total Protein 7.7 g/dL (6.3-8.2)
[2018-07-29 16:41] LABS: HEMOLYSIS 78 (0-50)
[2018-07-29 16:42] LABS: Potassium 4.7 mmol/L (3.4-5.1)
[2018-07-29 17:13] LABS: Bacteria Urine Few (2-10); Culture Indicated Urine Cult Not Indicated; RBC Urine 1-5/HPF (0-5/HPF); Squamous Epithelial Cell Urine 1-5 /HPF; WBC Urine 0-1/HPF (0-5/HPF)
--- NOTE | 2018-07-29 17:22 | DI.CT.S_ITS ---
PROCEDURE: CT ABDOMEN PELVIS W CON INDICATIONS: worsening abdominal pain mid lower to Right, chronic nausea/vomiting TECHNIQUE: After the administration of intravenous contrast, 5 mm thick sections acquired from the diaphragm to the symphysis. 5 mm coronal and sagittal reformats were acquired. For radiation dose reduction, the following was used: automated exposure control, adjustment of mA and/or kV according to patient size. COMPARISON: [facility], CT, ABDOMEN/PELVIS WITH CONTRAST, 02/19/2007, 14:35. FINDINGS: Image quality: Excellent. ABDOMEN: Lung bases: Lung bases are clear. Heart size is normal. Solid organs: Liver is normal in size and enhancement. Gallbladder is within normal limits. Biliary system is non dilated. Pancreas enhances normally. Spleen is normal in size and enhancement. No adrenal nodules. Kidneys demonstrate normal size and enhancement, without hydronephrosis. Peritoneum and bowel: Bowel loops demonstrate normal wall thickness and caliber. No free fluid or air. There is a small hiatal hernia. Appendix is not definitively identified. No secondary signs of acute appendicitis is seen in right lower quadrant abdomen Nodes and vessels: No retroperitoneal or mesenteric adenopathy by size criteria. Aorta and inferior vena cava are normal in size. Miscellaneous: No ventral hernias. PELVIS: Genitourinary: Bladder wall thickness is normal. Miscellaneous: No inguinal hernias or adenopathy. Bones: No suspicious bony lesions. No vertebral body compression fractures. IMPRESSION: 1. No acute inflammatory process within the abdomen or pelvis. No findings to explain patient's clinical symptoms. Dictated by: Tboy Armenta M.D. on 07/29/2018 at 18:22 Approved by: Toby Armenta M.D. on 07/29/2018 at 18:27
[2018-07-29] MEDS: diphenhydrAMINE 50 MG/ML VIAL IV (17:45)
[2018-07-29] MEDS: KETOROLAC 60 MG/2 ML VIAL 30 MG IV (18:26)
[2018-07-29 18:41] VITALS: BP 110/89; PULSE 72; RESP 15; O2SAT 99
[2018-07-29] MEDS: METOCLOPRAMIDE 10 MG/2 ML INJ IV (19:01)
[2018-07-29] MEDS: HYDROCODONE/ACET 5/325 TABLET 1 TAB PO (19:01)
[2018-07-29 19:58] VITALS: BP 106/69; PULSE 61; RESP 12; O2SAT 99
== END 2018-07-29 19:59 | disposition home or self-care (01) ==
PROVIDERS: Emergency Provider Internal Medicine; Family Provider Family Medicine; PCP Family Medicine
DX: R10.9 Unspecified abdominal pain (principal); R11.2 Nausea with vomiting, unspecified
CPT/HCPCS: 36591; 74177; 80053; 81003; 81015; 83690; 85025; 96361; 96374; 96375; 99283; 99285; J1200; J1885; J2405; J2765; Q9967

== ENCOUNTER 2018-08-20 08:31 | Day surgery (SDC) | payer MEDICARE, MEDICAID, SELFPAY ==
--- NOTE | 2018-08-20 | PATH_ITS ---
[facility] Accession Number: [id number] . 01 Material submitted: . PART A: SIGMOID POLYP AT 20 CM PART B: SIGMOID POLYPS AT 30 CM X2 PART C: COLON POLYP AT 35 CM PART D: LEFT COLON POLYPS AT 45 CM X2 PART E: ASCENDING COLON POLYP NEAR HEPATIC FLEXURE AT 90 CM PART F: TERMINAL ILEUM BIOPSY PART G: RECTAL POLYP AT 10 CM . 01 Clinical history: . B: POLYP X2 D: POLYP X2 . 02 Diagnosis: A. Sigmoid Colon, Polyp at 20 cm, Biopsy: Tubular adenoma. . B. Sigmoid Colon, Polyps at 30 cm x2, Biopsies: Tubular adenomas. . C. Colon, Polyp at 35 cm, Biopsy: Tubular adenoma. . D. Left Colon, Polyps at 45 cm x2, Biopsies: Tubular adenomas. . E. Ascending Colon, Polyp Near Hepatic Flexure at 90 cm, Biopsy: Tubular adenoma. . F. Terminal Ileum, Biopsy: Small bowel mucosa with no diagnostic abnormality. Negative for active inflammation, dysplasia and malignancy. . G. Rectum, Polyp at 10 cm, Biopsy: Tubular adenoma. MRV/08/22/2018 . 02 Electronically signed: . Kiki Rincon MD, Pathologist NPI- [id number] . 01 Gross description: . Received seven formalin-filled containers, each labeled with the patient's name: . A. In a container labeled sigmoid colon polyp at 20 cm, the specimen consists of a 0.6 cm portion of tissue, entirely submitted in cassette A. B. In a container labeled sigmoid polyps at 30 cm x2, the specimen consists of two 0.4-0.8 cm portions of tissue. The smallest piece is entirely submitted. The largest is trisected and entirely submitted in the same cassette. C. In a container labeled colon polyp at 35 cm, the specimen consists of a 0.4 cm portion of tissue, entirely submitted in cassette C. D. In a container labeled left colon polyps at 45 cm x2, the specimen consists of four 0.2-0.6 cm portions of tissue and possible debris, entirely submitted in cassette D. E. In a container labeled ascending colon polyp near hepatic flexure at 90 cm, the specimen consists of an irregular-shaped, friable, and fragmenting portion of tissue which measures 1.8 x 0.5 x 0.3 cm. The specimen is sectioned into multiple pieces and entirely submitted in cassette E. F. In a container labeled terminal ileum, the specimen consists of a 0.3 cm portion of tissue, entirely submitted in cassette F. G. In a container labeled rectal polyp at 10 cm, the specimen consists of a 0.3 cm portion of tissue, entirely submitted in cassette G. ([id number]) /FRR . 02 Pathologist provided ICD-10: D12.2, D12.5, D12.6, D12.8 . 02 CPT . 829580, 027523, 642262, 311161, 086133, 372401, 477820 Specimen Comment: A duplicate report has been generated due to demographic updates. Performed at: 01 [facility] [address] [place] [address], [place], [place] [id number] MD Bonifacio Walker MD Phone: [phone] Performed at: 02 [facility] [address] [place] [id number] MD Drew Penn MD Phone: [phone]
[2018-08-20 08:56] VITALS: BP 100/57; PULSE 93; RESP 18; TEMP 36.5; O2SAT 99
[2018-08-20] MEDS: LACTATED RINGERS 1,000 ML 42 ML IV (08:58)
--- NOTE | 2018-08-20 09:39 | PM.PREOP ---
Pre-operative Note Interval Note Pre-op Check: Yes History & Physical Reviewed by Physician and Yes Exam Performed Changes: No H&P completed within 30 days and has changed as indicated here:: Patient seen and examined in preoperative area. History and physical examination as documented August 14, 2018 has not changed and is on the chart. Proceed with colonoscopy today as planned.
[2018-08-20 11:02] VITALS: BP 111/74; PULSE 89; RESP 24; TEMP 36.1; O2SAT 98
[2018-08-20 11:07] VITALS: BP 129/100; PULSE 82; RESP 18; O2SAT 96
--- NOTE | 2018-08-20 11:09 | PM.OP.1 ---
Operative Date/Time/Diagnoses Date of procedure: 08/20/18 Time of procedure: 11:09 Pre-op diagnosis: Abdominal pain of unclear etiology with associated nausea and vomiting Post-op diagnosis: other (Multiple colon polyps but otherwise normal colon, rectum, and terminal ileum) Procedure & Clinicians Procedure: Colonoscopy with multiple hot snare polypectomies and cold forceps biopsy Same procedure as scheduled: Yes Indications: 48-year-old female who presented with several week history of progressive abdominal pain with associated intermittent nausea and vomiting. She had sought healthcare at other institutions in actually underwent EGD with biopsy under the care of another physician at an outside hospital. She presented to my office with ongoing symptoms as referred by her family physician. Colonoscopy was recommended since all other tests had been unremarkable. Given her history of chronic pain syndrome requiring significant analgesics and anxiety disorder including bipolar disease she was recommended to have anesthesia for the procedure. Surgeon: Matthieu Rain Click Yes if Unassisted: Yes Anesthesia Type: General Operative Notes Findings: 1. Multiple sessile adenomatous polyps throughout the entire colon 2. Grossly normal terminal ileum 3. No evidence of diverticulosis 4. No evidence of stricture or colitis anywhere in the colon 5. No clear pathology to explain patient's abdominal pain Closure Type: not applicable Specimen(s): other (See list below under procedure note) Implants & Drains: None Estimated Blood Loss (mL): 5 Blood products transfused: none Procedure in detail: After obtaining informed consent the patient was brought to the operating room and placed in the left lateral decubitus position. SCOAP time out was performed per standard protocol. Anesthesia was achieved. Please see the anesthesia record for further details. Digital rectal examination with lidocaine gel revealed no masses or abnormalities. Colonoscope was inserted into the rectum and the bowel was insufflated with air. Under direct visualization of the colonic lumen the scope was advanced to the cecum where the appendiceal orifice and ileocecal valve were identified. Terminal ileum was intubated and noted to be grossly normal. Biopsies were taken but there was no evidence of obvious inflammatory bowel disease. Scope was slowly withdrawn and the bowel was meticulously and circumferentially examined. Bowel preparation was excellent. Total withdrawal time was 12 min and 15 sec. There were multiple polyps identified and removed with a hot snare. Several of the flat adenomatous polyps required saline lift technique in order to successfully and completely removed them. Jeannine ink tattoos were applied at the site with the significant large flat polyps which included the sigmoid polyp at 20 cm and 2 sigmoid polyps at 35 cm. Hemostasis was verified. No other pathology was identified. Retroflexed view of the distal rectum and anus showed no abnormalities. Scope was withdrawn and procedure terminated. Patient taken recovery stable condition. Specimens: 1. Sigmoid polyp at 20 cm marked with Jeannine ink tattoo 2. Sigmoid colon polyps x2 at 30 cm marked with ink tattoo 3. Colon polyp at 35 cm 4. Left colon polyps x2 at 45 cm 5. Ascending colon polyp near hepatic flexure at 90 cm 6. Terminal ileum biopsies 7. Rectal polyp at 10 cm Complications: none Condition: stable Disposition: PACU Plan for aftercare: 1. Discharged home 2. Follow up with family physician as scheduled 3. Await biopsy results but recommend repeat colonoscopy in 1 year based on current findings 4. If abdominal symptoms continue recommend Gastroenterology consultation. However, I do have some suspicion of secondary gain regarding analgesics medications, especially given the patient's history and pain out of proportion to findings.
[2018-08-20 11:13] VITALS: BP 118/82; PULSE 83; RESP 20; O2SAT 96
[2018-08-20 11:18] VITALS: BP 131/60; PULSE 120; RESP 20; O2SAT 94
== END 2018-08-20 11:35 | disposition home or self-care (01) ==
PROVIDERS: Family Provider Family Medicine; PCP Family Medicine; Visit Provider Surgery
PROC: 0DJD8ZZ Inspection of Lower Intestinal Tract, Via Natural or Artificial Opening Endoscopic (ICD-10-PCS; CPT 45378; principal; 2018-08-20 10:00)
DX: D12.2 Benign neoplasm of ascending colon (principal); R11.2 Nausea with vomiting, unspecified; F41.9 Anxiety disorder, unspecified; G89.4 Chronic pain syndrome; F31.9 Bipolar disorder, unspecified; F17.210 Nicotine dependence, cigarettes, uncomplicated; J45.909 Unspecified asthma, uncomplicated; D12.5 Benign neoplasm of sigmoid colon; D12.6 Benign neoplasm of colon, unspecified; D12.8 Benign neoplasm of rectum
CPT/HCPCS: 45385; 45380; 45381; 88305; J2250; J2704; J3010

== ENCOUNTER 2019-05-17 16:57 | Emergency (ER) | payer MEDICARE, MEDICAID, SELFPAY ==
[2019-05-17 17:05] VITALS: BP 141/89; PULSE 78; RESP 18; TEMP 36.8; O2SAT 98; BMI 21.6
--- NOTE | 2019-05-17 17:09 | DI.RAD.S_ITS ---
PROCEDURE: XR SHOULDER RT MIN 2V INDICATIONS: felt a pop TECHNIQUE: 3 views of the shoulder were acquired. COMPARISON: None. FINDINGS: Bones: No fractures or dislocations. No suspicious bony lesions. Visualized ribs appear intact. Soft tissues: No suspicious soft tissue calcifications. IMPRESSION: No acute osseous abnormality of the right shoulder. Dictated by: Martin Hernández M.D. on 05/17/2019 at 16:39 Approved by: Martin Hernández M.D. on 05/17/2019 at 16:39
--- NOTE | 2019-05-17 18:59 | ED_ITS ---
HPI - General Adult General Chief complaint: Extremity Injury, Upper Stated complaint: pulled muscle on right shoulder today Time Seen by Provider: 05/17/19 18:58 Source: patient Mode of arrival: ambulatory Limitations: no limitations History of Present Illness HPI narrative: Patient is a 49-year-old female here for evaluation of pain in her right upper back. She states that she was moving some boxes when she fernando denly had onset of pain in this area. Has not tried anything for the symptoms prior to arrival except for some ice. No fevers. No chest pain. Related Data Home Medications Medication Instructions Recorded Confirmed albuterol sulfate [Ventolin HFA] 2 puff INH QID 07/29/18 08/20/18 beclomethasone dipropionate [Qvar 1 puff INHALATION BID 07/29/18 08/14/18 RediHaler] clonazepam 1 mg PO BID 07/29/18 08/20/18 coffee extract [Green Coffee Hagen] 1 cap PO DAILY 07/29/18 07/29/18 methocarbamol 1 tab PO TID PRN 07/29/18 08/20/18 Previous Rx's Medication Instructions Recorded quetiapine [Seroquel] 50 mg PO QHS #30 tab 04/06/17 metoclopramide 5 mg tablet 5 mg PO TID #60 tab 08/14/18 Allergies Allergy/AdvReac Type Severity Reaction Status Date / Time fexofenadine [From NAVIN-D] Allergy Mild UNCONTROLLABLE Verified 08/14/18 15:22 BOWEL MOVEMENTS gabapentin [GABAPENTIN] Allergy Mild BODY SHAKES Verified 08/14/18 15:22 pregabalin [PREGABALIN] Allergy Mild TAKES Verified 08/14/18 15:22 MEMORY AWAY, ITCHING pseudoephedrine Allergy Mild UNCONTROLLABLE Verified 08/14/18 15:22 [From NAVIN-D] BOWEL MOVEMENTS lamotrigine Allergy Unknown Verified 08/14/18 15:22 prochlorperazine AdvReac Unknown Anxiety Verified 08/14/18 15:22 PEPPER,LOPEZ Allergy Unknown Uncoded 08/14/18 15:22 Review of Systems Constitutional Denies fever(s) and Denies headache(s) ENT Ears, Nose, Mouth, and Throat: Denies headache(s) and Denies disequilibrium Cardiovascular Denies chest pain and Denies dyspnea Respiratory Denies dyspnea Gastrointestinal Gastrointestinal: Denies abdominal pain Genitourinary Denies dysuria Musculoskeletal Reports back pain (Right upper back), Reports arthralgias (Right shoulder) and Denies tingling Integumentary/Breasts Denies rash Neurologic Denies headache(s), Denies tingling, Denies paresthesias and Denies disequilibrium Hematologic/Lymphatic Denies easy bleeding and Denies easy bruising [facility] Medical History Rotator cuff tear, right (Resolved) Anxiety (Chronic 10/27/14) Complex regional pain syndrome type 1 of right upper extremity (Chronic 12/15/14) Esophageal spasm (Acute) History of breast abscess (Acute) Asthma (Chronic) Bipolar 1 disorder (Chronic) PTSD (post-traumatic stress disorder) (Chronic) History of alcohol abuse (Resolved) Social History household members: friend(s) Smoking Status: Current every day smoker alcohol intake: former Exam Initial Vital Signs Initial Vital Signs: Vital Signs Temperature 98.2 F 05/17/19 17:05 Pulse Rate 78 05/17/19 17:05 Respiratory Rate 18 05/17/19 17:05 Blood Pressure 141/89 H 05/17/19 17:05 Pulse Oximetry 98 05/17/19 17:05 Const General: cooperative, well developed, well groomed and No acute distress Orientation: alert, awake and oriented x3 HENMT Head: normal to inspection and normocephalic Resp Effort & Inspection: normal respiratory effort Auscultation: clear to auscultation bilaterally Cardio Rate: regular rate Rhythm: regular rhythm Pulses: radial pulses present on the right Skin Lesions: no lesions Rashes: no rashes Neuro General: alert and awake Cognition: normal cognition Speech: speech normal Sensory Exam: no sensory deficits noted Extrem Other: Tender to palpation over the rhomboids and latissimus dorsi and trapezius on the right side. No tenderness to palpation in the anterior portion the right shoulder. Right upper arm right elbow unremarkable. Psych Appearance: grossly normal and well kempt Course Orders Ordered: Discontinued Medications Hydromorphone HCl (Dilaudid) 1 mg IM NOW ONE Stop: 05/17/19 19:06 Last Admin: 05/17/19 19:18 Dose: 1 mg Ketorolac Tromethamine (Toradol) 30 mg IM NOW ONE Stop: 05/17/19 19:06 Last Admin: 05/17/19 19:20 Dose: 30 mg Vital Signs - 8 hr 05/17/19 19:43 Pulse Rate 71 Respiratory Rate 18 Blood Pressure 146/98 H Pulse Oximetry 98 Medical Decision Making Imaging Data Shoulder x-ray: Radiologist's impression: [address] [address] XRay Report Signed Patient: Kiki Priest LMR#: [id number] : 1970Acct:[id number] Age/Sex: 49 / FDate of Service: 05/17/19 Loc: ED Accession Number: [id number] Procedure: XR shoulder RT min 2V Ordering Provider: Riana Dominguez D.O. PROCEDURE: XR SHOULDER RT MIN 2V INDICATIONS: felt a pop TECHNIQUE: 3 views of the shoulder were acquired. COMPARISON: None. FINDINGS: Bones: No fractures or dislocations. No suspicious bony lesions. Visualized ribs appear intact. Soft tissues: No suspicious soft tissue calcifications. IMPRESSION: No acute osseous abnormality of the right shoulder. Dictated by: Martin Hernández M.D. on 05/17/2019 at 16:39 Approved by: Martin Hernández M.D. on 05/17/2019 at 16:39 [facility] Narrative Medical decision making narrative: Patient with history and physical exam consistent with a muscle strain most likely her rhomboids versus latissimus dorsi versus trapezius or any combination of these muscles. Was given pain medication and Toradol here in the emergency department. We did discuss treatment and follow-up and return precautions. Patient expressed understanding and agreement plan. Discharge Plan Departure Patient Disposition: Home Clinical Impression: Right shoulder strain Qualifiers: Encounter type: initial encounter Qualified Code(s): S46.911A - Strain of unspecified muscle, fascia and tendon at shoulder and upper arm level, right arm, initial encounter Discharge Date/Time: 05/17/19 20:09 Interventions: ED Discharge Assessment Last Done: 05/17/19 19:43 Instructions: DI for Muscle Strain Activity Restrictions/Additional Instructions: Continue to ICE your shoulder and do the exercises like we discussed. Continue to take an NSAID like mortin as directed. Return to the ER for any new or worsening symptoms. Prescriptions: No Action quetiapine [Seroquel] 50 MG tablet 50 mg PO QHS Qty: 30 RF: 0 metoclopramide HCl [Reglan] 5 mg tablet 5 mg PO TID Qty: 60 RF: 1 methocarbamol 500 mg tablet 1 tab PO TID PRN (Reason: muscle spasm) RF: 0 clonazepam 1 mg tablet 1 mg PO BID RF: 0 coffee extract [Green Coffee Hagen] 400 mg Capsule 1 cap PO DAILY RF: 0 beclomethasone dipropionate [Qvar RediHaler] 80 mcg/actuation Hfa Aerosol Breath Activated 1 puff Inhalation BID RF: 0 albuterol sulfate [Ventolin HFA] 90 MCG/PUFF HFA aerosol inhaler 2 puff INH QID RF: 0 Referrals: Madelyn Gibson MD [Primary Care Provider] -
[2019-05-17] MEDS: HYDROMORPHONE 1 MG INJ IM (19:18)
[2019-05-17] MEDS: KETOROLAC 60 MG/2 ML VIAL 30 MG IM (19:20)
[2019-05-17 19:43] VITALS: BP 146/98; PULSE 71; RESP 18; O2SAT 98
== END 2019-05-17 20:09 | disposition home or self-care (01) ==
PROVIDERS: Emergency Provider Emergency Medicine; Family Provider Family Medicine; PCP Family Medicine
DX: S46.911A Strain of unspecified muscle, fascia and tendon at shoulder and upper arm level, right arm, initial encounter (principal); X50.9XXA Other and unspecified overexertion or strenuous movements or postures, initial encounter
CPT/HCPCS: 73030; 96372; 99282; 99283; J1170; J1885

== ENCOUNTER 2019-10-25 07:08 | Emergency (ER) | payer MEDICARE, MEDICAID, OTHER, SELFPAY ==
[2019-10-25 07:18] VITALS: BP 112/59; PULSE 82; RESP 15; O2SAT 98; BMI 23.3
--- NOTE | 2019-10-25 07:43 | PC.NURSE ---
c collar applied at 0730
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
[2019-10-25] MEDS: KETOROLAC 60 MG/2 ML VIAL 15 MG IM (09:14)
[2019-10-25] MEDS: ACETAMINOPHEN 325 MG TABLET 650 MG PO (09:14)
[2019-10-25] MEDS: CYCLOBENZAPRINE 10 MG TABLET PO (09:15)
[2019-10-25 09:18] VITALS: BP 142/89; PULSE 85; RESP 18; O2SAT 98
== END 2019-10-25 09:28 | disposition home or self-care (01) ==
PROVIDERS: Emergency Provider Emergency Medicine; PCP Family Medicine
DX: M25.552 Pain in left hip (principal); M25.551 Pain in right hip; M54.2 Cervicalgia; M25.532 Pain in left wrist; V49.49XA Driver injured in collision with other motor vehicles in traffic accident, initial encounter
CPT/HCPCS: 72125; 73110; 74176; 96372; 99282; 99284; J1885

== ENCOUNTER 2019-11-17 10:02 | Emergency (ER) | payer MEDICARE, MEDICAID, OTHER, SELFPAY ==
[2019-11-17 10:38] VITALS: BP 106/74; PULSE 88; RESP 18; TEMP 36.7; O2SAT 100
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
[2019-11-17] MEDS: KETOROLAC 60 MG/2 ML VIAL 30 MG IM (12:32)
[2019-11-17 12:44] VITALS: BP 124/74; PULSE 64; RESP 17; O2SAT 98
[2019-11-17 13:00] VITALS: BP 126/78; PULSE 61; RESP 17; O2SAT 95
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
[2019-11-17 14:00] VITALS: BP 124/75; PULSE 57; RESP 16; O2SAT 100
[2019-11-17] MEDS: clonazePAM 0.5 MG TABLET 1 MG PO (14:01)
[2019-11-17] MEDS: HYDROMORPHONE 1 MG INJ IM (14:01)
[2019-11-17] MEDS: HYDROCODONE/ACET 5/325 TABLET 2 TAB PO (15:44)
--- NOTE | 2019-11-17 15:56 | PC.NURSE ---
Patient up to BSC with minimal assistance. Requesting to go smoke and to eat something. Advised patient she could not eat or leave the ED until her results of MRI come back.
[2019-11-17 16:00] VITALS: BP 134/82; PULSE 67; RESP 17; O2SAT 99
--- NOTE | 2019-11-17 16:12 | PC.NURSE ---
400mL of yellow urine voided.
[2019-11-17 16:23] VITALS: BP 134/82; PULSE 85; RESP 16; TEMP 36.6; O2SAT 100
== END 2019-11-17 16:24 | disposition home or self-care (01) ==
PROVIDERS: Emergency Provider Emergency Medicine; PCP Family Medicine
DX: M54.5 Low back pain (principal); R41.3 Other amnesia; V89.2XXD Person injured in unspecified motor-vehicle accident, traffic, subsequent encounter
CPT/HCPCS: 70450; 72131; 72148; 72192; 96372; 99284; J1170; J1885

== ENCOUNTER 2020-09-17 13:27 | Emergency (ER) | payer OTHER, MEDICAID, SELFPAY ==
[2020-09-17 14:00] VITALS: BP 153/74; PULSE 109; RESP 16; TEMP 36.8; O2SAT 99; BMI 25.8
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
[2020-09-17] MEDS: KETOROLAC 60 MG/2 ML VIAL 30 MG IM (15:19)
[2020-09-17 15:30] VITALS: BP 129/83; PULSE 86; RESP 18; O2SAT 100
== END 2020-09-17 15:33 | disposition home or self-care (01) ==
PROVIDERS: Emergency Provider Emergency Medicine; PCP Internal Medicine
DX: S16.1XXA Strain of muscle, fascia and tendon at neck level, initial encounter (principal); V89.2XXA Person injured in unspecified motor-vehicle accident, traffic, initial encounter
CPT/HCPCS: 93005; 93010; 96372; 99283; J1885

== ENCOUNTER 2020-11-15 13:15 | Emergency (ER) | payer OTHER, MEDICAID, SELFPAY ==
[2020-11-15 13:22] VITALS: BP 154/85; PULSE 104; RESP 20; TEMP 37; O2SAT 100
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
[2020-11-15] MEDS: TET,DIPH,PERTUSS(ACELL),VAC/PF 0.5 ML SYRINGE IM (14:21)
[2020-11-15] MEDS: LIDO 1%/SOD BICARB 8.4% (10ML) 10 ML SYRINGE INJ (14:23)
== END 2020-11-15 14:47 | disposition home or self-care (01) ==
PROVIDERS: Emergency Provider Emergency Medicine; PCP Internal Medicine
DX: S61.412A Laceration without foreign body of left hand, initial encounter (principal); W26.0XXA Contact with knife, initial encounter; F31.9 Bipolar disorder, unspecified; F43.10 Post-traumatic stress disorder, unspecified; Z23 Encounter for immunization
CPT/HCPCS: 12001; 90471; 99282; 99283; 90715

== ENCOUNTER 2022-03-20 11:01 | Emergency (ER) | payer OTHER, MEDICAID, SELFPAY ==
[2022-03-20 11:28] VITALS: BP 144/70; PULSE 71; RESP 18; TEMP 36.6; O2SAT 100; BMI 26.6
--- NOTE | 2022-03-20 11:31 | DI.RAD.S_ITS ---
PROCEDURE: XR HIP W PEL IF DONE RT 2V INDICATIONS: numb/painful TECHNIQUE: AP pelvis with lateral view(s) of the right hip(s). COMPARISON: None. FINDINGS: Bones: No fractures or dislocations. Pelvic ring appears intact. No suspicious bony lesions. Soft tissues: The visualized bowel gas pattern is normal. No suspicious soft tissue calcifications. IMPRESSION: No acute right hip fracture or dislocation. No evidence of avascular necrosis of femoral head. Dictated by: Toby Armenta M.D. on 03/20/2022 at 12:06 Approved by: Toby Armenta M.D. on 03/20/2022 at 12:07
--- NOTE | 2022-03-20 20:17 | ED.LOWEXIN ---
HPI - Extremity Injury (Lower) <Shelly Puri PA-C - Last Filed: 03/20/22 20:27> General Chief Complaint: Extremity Injury, Lower Stated Complaint: Popped rt hip out t-14, leg numbness Time Seen by Provider: 03/20/22 13:39 Source: patient Mode of arrival: Ambulatory History of Present Illness HPI Narrative: 52-year-old female presents to the ED with 2-1/2 weeks of right-sided hip pain. Patient states that she felt a pop and felt that her hip head dislocated 2-1/2 weeks ago when she was walking at home. Patient states that she maneuvered her leg such that she was able to pop it back in. Patient states she was able to walk after that, however she has experienced right-sided hip pain with some leg numbness since then. Patient states that she feels like she has to limp due to the pain. Patient denies weakness, tingling. Patient denies saddle paresthesias, urinary hesitancy. Patient has not tried any medications for the pain. Patient states that this happens to her almost every year, has not been evaluated for it. Patient denies any trauma. Related Data Home Medications Medication Instructions Recorded Confirmed albuterol sulfate 90 mcg/actuation 2 puff INH DIRECTED 07/29/18 04/15/21 aerosol inhaler (Ventolin HFA) clonazepam 1 mg tablet 1 mg PO BID 07/29/18 04/15/21 methocarbamol 500 mg tablet 1 tab PO TID PRN 07/29/18 04/15/21 lidocaine 5 % topical ointment 1 applic TOPICAL QID PRN 11/17/19 04/15/21 quetiapine 50 mg tablet (Seroquel) 100 mg PO BEDTIME 11/17/19 04/15/21 nrmtryo-ghufrizjizplu-kdqstuok 250 2 tab PO Q6H PRN 04/14/20 04/15/21 mg-250 mg-65 mg tablet (Excedrin Extra Strength) Allergies Allergy/AdvReac Type Severity Reaction Status Date / Time fexofenadine [From NAVIN-D] Allergy Mild UNCONTROLLABLE Verified 04/15/21 08:49 BOWEL MOVEMENTS gabapentin [GABAPENTIN] Allergy Mild BODY SHAKES Verified 04/15/21 08:49 pregabalin [PREGABALIN] Allergy Mild TAKES Verified 04/15/21 08:49 MEMORY AWAY, ITCHING pseudoephedrine Allergy Mild UNCONTROLLABLE Verified 04/15/21 08:49 [From NAVIN-D] BOWEL MOVEMENTS lamotrigine Allergy Unknown Verified 04/15/21 08:49 prochlorperazine AdvReac Unknown Anxiety Verified 04/15/21 08:49 PEPPER,LOPEZ Allergy Unknown Uncoded 04/15/21 08:49 Review of Systems <Shelly Puri PA-C - Last Filed: 03/20/22 20:27> Review of Systems ROS Unobtainable: All systems reviewed & are unremarkable except as noted in HPI and below Constitutional Constitutional: Denies chills, Denies fatigue, Denies fever(s), Denies frequent falls, Denies lethargy and Denies weakness Eyes Eyes: Denies change in vision, Denies eye discharge, Denies irritation and Denies loss of vision ENT Ears, Nose, Mouth, and Throat: Denies change in voice, Denies dizziness, Denies neck pain, Denies sore throat and Denies throat swelling Cardiovascular Cardiovascular: Denies chest pain, Denies irregular heart rhythm, Denies lightheadedness, Denies palpitations, Denies dyspnea, Denies dyspnea on exertion and Denies orthopnea Respiratory Respiratory: Denies cough, Denies dyspnea, Denies dyspnea on exertion and Denies wheezing Gastrointestinal Gastrointestinal: Denies abdominal pain, Denies change in bowel habits, Denies diarrhea, Denies nausea and Denies vomiting Genitourinary Genitourinary: Denies hematuria, Denies flank pain, Denies urinary incontinence and Denies urinary urgency Musculoskeletal Musculoskeletal: Denies back pain, Denies muscle weakness, Denies neck pain, Denies numbness and Denies tingling Comments: Hip pain, left leg numbness Integumentary/Breasts Skin/Breast: Denies pruritus, Denies erythema, Denies rash and Denies wounds Neurologic Neurologic: Denies behavioral changes, Denies confusion, Denies dizziness, Denies frequent falls, Denies loss of vision, Denies numbness, Denies tingling and Denies weakness Psychiatric Psychiatric: Denies anxiety, Denies behavioral changes, Denies confusion, Denies depression, Denies homicidal ideation and Denies suicidal ideation Endocrine Endocrine: Denies fatigue, Denies flushing and Denies palpitations Hematologic/Lymphatic Hematologic/Lymphatic: Denies easy bruising Allergic/Immunologic Allergic/Immunologic: Denies urticaria, Denies throat swelling and Denies wheezing Patient History <Shelly Puri PA-C - Last Filed: 03/20/22 20:27> Medical History Acute bilateral low back pain Anxiety (10/27/14) ASCUS with positive high risk HPV Asthma Bipolar 1 disorder Complex regional pain syndrome type 1 of right upper extremity (12/15/14) Esophageal spasm History of alcohol abuse History of breast abscess Lumbar radiculopathy PTSD (post-traumatic stress disorder) Rotator cuff tear, right Surgical History History of esophagogastroduodenoscopy (EGD) Status post appendectomy Status post hysterectomy with oophorectomy Status post laparoscopic supracervical hysterectomy Family History Father Heart attack Social History household members: friend(s) Smoking Status: Current every day smoker alcohol intake: former Smoking Status: Current every day smoker alcohol intake frequency: other Substance Use Type: does not use Exam <Shelly Puri PA-C - Last Filed: 03/20/22 20:27> Narrative Exam Narrative: Const General:?cooperative, healthy appearing and comfortable [facility] Head:?normal to inspection Ears:?hearing grossly normal bilaterally Nose:?external nose normal Face and sinus:?normal facial exam and sinuses nontender Mouth:?oral mucosae normal Throat:?posterior oropharynx normal Eyes General:?appearance normal, both eyes and all related structures Musculoskeletal No tenderness to palpation of the right hip. No deformities, bruising noted; full range of motion; patient walks with a limp to avoid putting full weight on the right leg. Neurovascularly intact. Neck Neck:?normal visual inspection and no lymphadenopathy noted Resp Effort & Inspection:?normal respiratory effort Auscultation:?clear to auscultation bilaterally Cardio Rate:?regular rate Rhythm:?regular rhythm Neuro General:?patient alert, patient awake and patient oriented x3 Initial Vital Signs Initial Vital Signs: Vital Signs Temperature 97.9 F 03/20/22 11:28 Pulse Rate 71 03/20/22 11:28 Respiratory Rate 18 03/20/22 11:28 Blood Pressure 144/70 H 03/20/22 11:28 Pulse Oximetry 100 03/20/22 11:28 <Riana Dominguez DO - Last Filed: 03/22/22 07:25> Initial Vital Signs Initial Vital Signs: Vital Signs Temperature 97.9 F 03/20/22 11:28 Pulse Rate 71 03/20/22 11:28 Respiratory Rate 18 03/20/22 11:28 Blood Pressure 144/70 H 03/20/22 11:28 Pulse Oximetry 100 03/20/22 11:28 Course <Shelly Puri PA-C - Last Filed: 03/20/22 20:27> Orders Ordered: ED Orders 03/20/22 11:31 XR hip w pel if done RT 2V Stat <Riana Dominguez DO - Last Filed: 03/22/22 07:25> Orders Ordered: ED Orders 03/20/22 11:31 XR hip w pel if done RT 2V Stat MDM - Extremity Injury (Lower) <СВЕТЛАНА Meza Last Filed: 03/20/22 20:27> Medical Records Attestation: I reviewed the patient's medical records. Imaging Data Hip x-ray: Radiologist's Impression: PROCEDURE:? XR HIP W PEL IF DONE RT 2V ? INDICATIONS:? numb/painful ? TECHNIQUE:? AP pelvis with lateral view(s) of the right hip(s).? ? COMPARISON:? None. ? FINDINGS:? ? Bones:? No fractures or dislocations.? Pelvic ring appears intact.? No suspicious bony lesions.? ? Soft tissues:? The visualized bowel gas pattern is normal.? No suspicious soft tissue calcifications.? ? ? IMPRESSION:? No acute right hip fracture or dislocation.? No evidence of avascular necrosis of femoral head.? ? ? Dictated by: Toby Armenta M.D. on 03/20/2022 at 12:06 ? ? Approved by: Toby Armenta M.D. on 03/20/2022 at 12:07 ? MDM Narrative Medical decision making narrative: 52-year-old female presents to the ED with 2-1/2 weeks of right-sided hip pain. Concern for fracture/dislocation versus musculoskeletal sprain/strain. X-rays were obtained, no acute findings of fracture/dislocation/avascular necrosis. Patient's symptoms likely due to musculoskeletal sprain/strain. Recommend patient rest the leg, take ibuprofen/Tylenol for symptoms. Recommend follow-up with PCP for physical therapy or ortho follow-up. ED return precautions discussed with patient. Patient verbalizes understanding. Discharge Plan Departure Patient Disposition: Home Clinical Impression: Hip pain Instructions: DI for Hip Pain Activity Restrictions/Additional Instructions: Were evaluated in the ED today for right-sided hip pain. Your x-ray was normal with no evidence of fracture/dislocation/avascular necrosis. Your symptoms are likely due to a musculoskeletal sprain/strain. You may use warmth, ibuprofen, rest. If your symptoms do not improve, please follow-up with your PCP for physical therapy referral, ortho referral. Return to the ED if you notice any loss of strength, inability to walk. Prescriptions: No Action methocarbamol 500 mg tablet 1 tab PO TID PRN (Reason: muscle spasm) 0RF Label Comments: TK 1 T PO TID PRF MUSCLE SPASMS clonazepam 1 mg tablet 1 mg PO BID 0RF Label Comments: TK 1 T PO BID albuterol sulfate [Ventolin HFA] 90 MCG/PUFF HFA aerosol inhaler 2 puff INH DIRECTED 0RF Rx Instructions: one to two times daily lidocaine 5 % ointment 1 applic topical QID PRN (Reason: as directed) 0RF Label Comments: PARDEEP EXT AA QID PRN quetiapine [Seroquel] 50 MG tablet 100 mg PO BEDTIME 0RF Excedrin Extra Strength 250-250-65 mg tablet 2 tab PO Q6H PRN0RF Referrals: Deepa Dawkins MD [Primary Care Provider] - <Riana Dominguez DO - Last Filed: 03/22/22 07:25> [facility] ED Attending Gurpreetature Attestation: I was immediately available in the department for consultation. Documentation has been reviewed. I agree with assessment and plan.
== END 2022-03-20 14:04 | disposition home or self-care (01) ==
PROVIDERS: Emergency Provider Student in an Organized Health Care Education/Training Program; PCP Internal Medicine
DX: M25.551 Pain in right hip (principal); F17.200 Nicotine dependence, unspecified, uncomplicated
CPT/HCPCS: 73502; 99283

== ENCOUNTER → 2022-04-14 13:06 | Outpatient (CLI) | payer OTHER, MEDICAID, SELFPAY ==
[2022-04-14 14:11] LABS: Add Manual Diff / Slide Review NO; Basophils Absolute Auto 100 /uL (0-100); Basophils Percent Auto 1.2 % (0-2); Eosinophils Absolute Auto 100 /uL (0-450); Eosinophils Percent Auto 0.9 % (2-4); Hematocrit 41.9 % (36-46); Hemoglobin 14.5 g/dL (12.0-16.0); Lymphocytes Absolute Auto 2100 /uL (1100-4500); Lymphocytes Percent Auto 30.2 % (25-40); Mean Corpuscular HGB Conc 34.6 % (30-36); Mean Corpuscular Hemoglobin 29.4 PG (26-34); Mean Corpuscular Volume 85.2 fL (80-100); Monocytes Absolute Auto 400 /uL (0-900); Monocytes Percent Auto 6.5 % (3-14); Neutrophils Absolute Auto 4200 /uL (1500-7000); Neutrophils Percent Auto 61.2 % (50-75); Platelet Count 207 X10^3/uL (150-400); Red Blood Cell Count 4.92 X10^6/uL (4.0-5.2); Red Cell Distribution Width 13.8 % (11.6-14.8); White Blood Cell Count 6.8 X10^3/uL (4.5-11.0)
[2022-04-14 14:28] LABS: Alanine Aminotransferase 15 IU/L (<35); Albumin 4.6 g/dL (3.5-5.0); Albumin Globulin Ratio 1.4 (1.0-2.8); Alkaline Phosphatase 99 U/L (38-126); Aspartate Aminotransferase 23 IU/L (14-36); BUN Creatinine Ratio 21.7 (6-22); Bilirubin Total 0.5 mg/dL (0.2-1.3); Blood Urea Nitrogen 18 mg/dL (7-17); Calcium 9.4 mg/dL (8.4-10.2); Carbon Dioxide 28 mmol/L (22-32); Chloride 106 mmol/L (98-107); Cholesterol 186 mg/dL (140-199); Estimated Glomerular Filt Rate > 60 mL/min (>60); Globulin 3.2 g/dL (1.7-4.1); Glucose 75 mg/dL (70-100); HDL Cholesterol 52 mg/dL (40-60); HEMOLYSIS < 15 (0-50); LDL Cholesterol Calculated 86 mg/dL (<100); Potassium 4.2 mmol/L (3.4-5.1); Sodium 144 mmol/L (137-145); Total Protein 7.8 g/dL (6.3-8.2); Triglycerides 240 mg/dL (35-150)
[2022-04-14 14:33] LABS: Hemoglobin A1C% w Est Avg Glu 5.6 % (4.0-6.0)
[2022-04-14 15:04] LABS: Thyroid Stimulating Hormone 1.11 uIU/mL (0.47-4.68)
== END ==
PROVIDERS: PCP Internal Medicine; Referring Provider Internal Medicine; Visit Provider Internal Medicine
DX: I10 Essential (primary) hypertension (principal); R73.01 Impaired fasting glucose; C52 Malignant neoplasm of vagina; J44.9 Chronic obstructive pulmonary disease, unspecified; J45.909 Unspecified asthma, uncomplicated; Z00.00 Encounter for general adult medical examination without abnormal findings; Z79.899 Other long term (current) drug therapy
CPT/HCPCS: 36415; 80053; 80061; 83036; 84443; 85025

== ENCOUNTER → 2022-06-13 10:42 | Outpatient (CLI) | payer OTHER, MEDICAID, SELFPAY ==
--- NOTE | 2022-06-13 | DI.MRI.S_ITS ---
PROCEDURE: MR SHOULDER RT WO CON INDICATIONS: Unspecified rotator cuff tear or rupture of right shoulder, TECHNIQUE: Noncontrast oblique coronal T2 fast spin echo with fat saturation, oblique sagittal T1 spin echo and T2 fast spin echo with fat saturation, axial T1 spin echo and T2 fast spin echo with fat saturation through the shoulder. COMPARISON: [facility], CR, XR SHOULDER RT MIN 2V, 05/17/2019, 17:14. FINDINGS: Image quality: Excellent. Rotator cuff: Mild to moderate supraspinatus and infraspinatus tendinosis is seen. There is focal thin low-grade partial bursal surface tearing at the supraspinatus tendon insertion. The teres minor tendon is intact. The subscapularis tendon is intact. The rotator cuff musculature is normal in bulk. Bones and bursae: No acute trabecular bone injury. Chronic traction cystic changes are seen at the posterosuperior humeral head. No significant glenohumeral degenerative changes. Mild degenerative changes are seen at the acromioclavicular joint. There is small amount of fluid is seen in the subacromial/subdeltoid bursa. No glenohumeral joint effusion is seen. Capsule and soft tissues: No displaced labral tear. The proximal biceps long head tendon is intact. There is mild partial effacement of the rotator interval fat. The anterior band of the glenohumeral ligament appears mildly thickened. IMPRESSION: 1. Focal low-grade partial bursal surface tearing of the supraspinatus tendon at the distal footprint superimposed on mild to moderate supraspinatus and infraspinatus tendinosis. 2. Mild acromioclavicular joint osteoarthrosis. 3. Small subacromial/subdeltoid bursal effusion or bursitis. 4. Partial effacement of the rotator interval fat and mild thickening of the inferior glenohumeral ligament are nonspecific, but can be seen in the setting of the clinical syndrome of adhesive capsulitis. Dictated by: Harley Lora M.D. on 06/13/2022 at 12:38 Approved by: Harley Lora M.D. on 06/13/2022 at 12:49
== END ==
PROVIDERS: PCP Internal Medicine; Referring Provider Counselor Mental Health; Visit Provider Counselor Mental Health
DX: M75.111 Incomplete rotator cuff tear or rupture of right shoulder, not specified as traumatic (principal); M19.011 Primary osteoarthritis, right shoulder; M75.51 Bursitis of right shoulder
CPT/HCPCS: 73221